=== PATIENT | female | born 1995 | race American Indian/Alaskan Native ===

== ENCOUNTER 2018-01-29 23:50 | Emergency (ER) | payer OTHER ==
[2018-01-30 00:34] LABS: Basophils % (Auto) 0.5 % (0.0-1.8); Eosinophils # (Auto) 0.1 K/mm3 (0.0-0.4); Eosinophils % (Auto) 0.8 % (0.0-4.3); Hematocrit 33.6 % (30.3-42.9); Hemoglobin 11.1 gm/dl (10.1-14.3); Lymphocytes # (Auto) 0.8 K/mm3 (1.2-5.4); Lymphocytes % (Auto) 9.9 % (13.4-35.0); Mean Corpuscular HGB Conc 33 % (30-34); Mean Corpuscular Volume 74 fl (79-97); Monocytes # (Auto) 0.6 K/mm3 (0.0-0.8); Monocytes % (Auto) 7.1 % (0.0-7.3); Platelet Count 349 K/mm3 (140-440); Red Blood Count 4.56 M/mm3 (3.65-5.03); Red Cell Distribution Width 18.8 % (13.2-15.2)
[2018-01-30 00:35] LABS: Mean Corpuscular Hemoglobin 24 pg (28-32)
[2018-01-30 02:34] LABS: Bilirubin,Urine NEG (Negative); Blood,Urine NEG (Negative); Calcium Oxalate Crystals,Urine 3+; Color,Urine Yellow (Yellow); Mucus,Urine 3+ /HPF
--- NOTE | 2018-01-30 03:13 | Ultrasound Report ---
FINAL REPORT EXAM: US OB < = 14 WEEKS FETUS HISTORY: vag bleeding TECHNIQUE: Transabdominal imaging was obtained of the pelvis. Doppler interrogation of the uterus and adnexa was obtained. FINDINGS: The uterus is anteverted measuring 9.8 cm x 6.3 cm x 7.7 cm. Within the uterus is a gestational sac which contains yolk sac and pole. The crown-rump length is 42.6 mm corresponding to an 11 week 1 day IUP. The heart rate is 167 BPM. Adjacent to the gestational sac is a hyperechoic area compatible with a small subchorionic hemorrhage. Free fluid is not identified. The left ovary is normal size contour and echotexture measuring 2.4 cm x 2.5 cm x 2.1 cm. The right ovary measures 2.9 cm x 2 cm x 2.5 cm. There is several small follicles in the right ovary measuring up to 1.3 cm in diameter. Blood flow is normal to both ovaries. IMPRESSION: Single viable IUP, 11 weeks 1 day. The heart rate is 167 BPM Hyperechoic area adjacent to the gestational sac compatible with a small subchorionic hemorrhage.
--- NOTE | 2018-01-30 03:14 | Ultrasound Report ---
FINAL REPORT EXAM: US OB TRANSVAGINAL HISTORY: vag bleeding TECHNIQUE: Routine transvaginal imaging was obtained the pelvis including Doppler interrogation of the uterus and adnexa. FINDINGS: The uterus is anteverted measuring 9.8 cm by 6.3 cm x 7.7 cm. Within the uterus is a gestational sac which contains a yolk sac and pole. The crown-rump length is 42.6 mm corresponding to an 11 week 1 day IUP. The heart rate is 167 BPM. There is a small hyperechoic area adjacent to the gestational sac compatible with subchorionic hemorrhage. Free fluid is not seen. The left ovary is normal size contour blood flow and echotexture measuring 2.4 cm x 2.5 cm by 2.1 cm. The right ovary measures 2.9 cm x 2 cm x 2.5 cm. There are small follicles in right ovary each measuring 1.3 cm in diameter. The blood flow is normal to the right ovary. IMPRESSION: Single viable IUP, 11 weeks 1 day. The heart rate is 167 BPM. Small hyperechoic subchorionic hemorrhage adjacent to the gestational sac.
[2018-01-30 07:37] VITALS: BP 107/65
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
== END 2018-01-30 09:40 | disposition home or self-care (01) ==
LOC: ED 23:50
DX: O20.0 Threatened abortion (principal); Z3A.10 10 weeks gestation of pregnancy
CPT/HCPCS: 36415; 76801; 76817; 81001; 84702; 85025; 86850; 86900; 86901; 99284

== ENCOUNTER 2018-02-18 21:09 | Emergency (ER) | payer OTHER ==
[2018-02-18 21:36] VITALS: BP 117/60
[2018-02-19] MEDS ORDERED: TYLENOL PO ONE (01:01)
--- NOTE | 2018-02-19 02:30 | Emergency Department Report ---
HPI - General Chief Complaint: Allergic Reaction Time Seen by Provider: 02/19/18 00:55 - HPI HPI: The patient is given 23-year-old female whom presents for evaluation of right leg pain and rash. The patient reports 3 days of right medial upper leg itching , mild sore-like pain, and redness to the medial thigh. She states that her symptoms have been constant but improving, and worse with scratching of the rash. The patient denies fever, chills, night sweats, chest pain, back pain, dyspnea, abdominal pain, vaginal bleeding or discharge, diarrhea, blood in the stool, dark tarry stool, dysuria, hematuria, flank pain, inability to pass flatus, paresthesias, motor deficit, unilateral leg swelling, history of DVT or PE, recent immobilization, history of cancer. ED Past Medical Hx - Past Medical History Previous Medical History?: No - Surgical History Past Surgical History?: No - Social History Smoking Status: Never Smoker Substance Use Type: None - Medications Home Medications: Home Medications Medication Instructions Recorded Confirmed Last Taken Type Ondansetron [Zofran Odt] 4 mg PO Q6HR PRN #20 tab.rapdis 01/30/18 Unknown Rx Nitrofurantoin Monohyd/M-Cryst 100 mg PO BID #14 capsule 02/19/18 Unknown Rx [Macrobid 100 mg Capsule] Pnv No.95/Ferrous Fum/Folic AC 1 each PO QDAY #31 tablet 02/19/18 Unknown Rx [ Vitamin Tablet] ED Review of Systems ROS: Stated complaint: VAG D/C WITH ODOR Other details as noted in HPI Constitutional: denies: fever ENT: denies: throat or neck pain Respiratory: denies: cough, shortness of breath Cardiovascular: denies: chest pain Endocrine: denies unexplained weight loss or gain Gastrointestinal: denies: abdominal pain, nausea Genitourinary: reports: dysuria Musculoskeletal: reports right leg pain Skin: denies: rash Neurological: denies: headache Hematological/Lymphatic: denies: easy bleeding or easy bruising Psych: denies sadness or hopelessness Physical Exam - Physical Exam Vital Signs: Vital Signs 02/18/18 21:30 Temperature 98.8 F Pulse Rate 83 Respiratory 18 Rate Blood Pressure 117/60 O2 Sat by Pulse 100 Oximetry Physical Exam: General: well-nourished, well-developed, no acute distress Head: Normocephalic, atraumatic Eyes: normal sclera ENT: Mucous membranes are pink and moist Neck: trachea midline, neck supple, No neck stiffness, no cervical adenopathy Respiratory: Breath sounds equal bilaterally, no wheezing, rales, or rhonchi Cardio: S1 and S2 present, no murmurs, rubs, gallops, capillary refill is brisk Abdomen: Normoactive bowel sounds, soft abdomen, Musc: No pitting edema, approximately 10 cm well-circumscribed circular area of erythema present to the right medial thigh, the compartments are soft and pliable, there is no open wounds, and also no fluctuance, crepitus, bruising, ecchymosis, or leg swelling whatsoever Skin: No rash Neuro: no facial drooping, normal speech Psych: Normal affect ED Course Vital Signs 02/18/18 21:30 Temperature 98.8 F Pulse Rate 83 Respiratory 18 Rate Blood Pressure 117/60 O2 Sat by Pulse 100 Oximetry ED Medical Decision Making - Medical Decision Making Evaluation final consistent with mild cellulitis of the right medial thigh. The patient is already on Keflex for treatment of the cellulitis and per patient he infection has been improving/redness decreasing. The patient is stable for discharge with outpatient follow-up. The patient is given follow-up and return instructions. The patient expressed understanding and agreed with the plan. The patient is discharged in stable condition. Critical care attestation.: If time is entered above; I have spent that time in minutes in the direct care of this critically ill patient, excluding procedure time. ED Disposition Clinical Impression: Cellulitis of right lower extremity Disposition: - TO HOME OR SELFCARE Is pt being admited?: No Does the pt Need Aspirin: No Condition: Stable Instructions: Cellulitis (ED) Referrals: SHARRI PITTMAN MD [Staff Physician] - 3-5 Days Forms: Work/School Release Form(ED) Time of Disposition: :02
== END 2018-02-19 01:36 | disposition home or self-care (01) ==
LOC: ED 21:09
DX: L03.115 Cellulitis of right lower limb (principal)
CPT/HCPCS: 99282

== ENCOUNTER 2018-02-19 12:12 | Outpatient (CLI) | payer OTHER | END 2018-02-19 12:13 | disposition home or self-care (01) | LOC: VAS 12:12 | PROVIDERS: ATTEND Emergency Medicine | DX: M79.661 Pain in right lower leg (principal); M79.89 Other specified soft tissue disorders ==